=== PATIENT | female | born 1980 | race Caucasian/White ===

== ENCOUNTER → 2022-05-17 | Outpatient (CLI) | payer OTHER | LOC: HEART CORB 11:00 | DX: R06.00 Dyspnea, unspecified (principal); I10 Essential (primary) hypertension; R00.2 Palpitations; R07.2 Precordial pain; I07.1 Rheumatic tricuspid insufficiency; I27.20 Pulmonary hypertension, unspecified | CPT/HCPCS: 93306 ==